=== PATIENT | male | born 2000 | race American Indian/Alaskan Native ===

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

== ENCOUNTER 2022-01-22 18:00 | Emergency (ER) | payer SELFPAY ==
[2022-01-22] MEDS ORDERED: KETOROLAC 60 MG/2 ML INJ IM ONE (20:42)
[2022-01-22] MEDS ORDERED: diazePAM 5 MG TAB PO ONE (20:42)
[2022-01-22] MEDS ORDERED: dexAMETHasone 20 MG/5 ML VIAL IM ONE (20:42)
--- NOTE | 2022-01-22 21:32 | Emergency Department Report ---
ED Back Pain/Injury HPI - General Chief Complaint: Back Pain/Injury Stated Complaint: BACK PAIN Source: patient Limitations: No Limitations - History of Present Illness Initial Comments: Patient is a 21-year-old -Citizen Of [place] male with no past medical history who presents to the ED with complaint of acute onset persistent low back pain after heavy lifting at work for the last 3 days. Patient states that the pain is especially constant with and worsening with any movement. Patient also complains of persistently itchy dry scaly rashes on the posterior neck for the last 6 months and that he has applied topical medications with no relief. Patient denies dizziness, syncope, fall, traumatic injury, dysuria, fever, chills, urinary frequency and urgency, hematuria, chest pain or shortness of breath, abdominal pain, nausea and vomiting, numbness and tingling or weakness of lower extremities bilaterally, change in vision, urinary or bowel incontinence and saddle paresthesia. MD Complaint: back pain (lower), back injury (heavy lifting at work), other (dry scaly itchy rashes on neck) -: Gradual, days(s) (3) Similar Symptoms Previously: No Place: work Radiation: none Severity: severe Severity scale (0 -10): 8 Quality: sharp, aching Consistency: constant Improves With: none Worsens With: movement, walking Context: while lifting, turning/twisting Associated Symptoms: denies other symptoms. denies: confusion, weakness, numbness, difficulty walking, cough, difficulty urinating, incontinence, fever/chills, constipation, headaches, abdominal pain, loss of appetite, nausea/vomiting, rash, seizure, shortness of breath, syncope, other - Related Data Previous Rx's Medication Instructions Recorded Last Taken Type Famotidine [Pepcid] 20 mg PO BID PRN #20 tablet 06/15/16 Unknown Rx Loratadine (Nf) [Claritin] 10 mg PO DAILY #10 tablet 06/15/16 Unknown Rx hydrOXYzine HCL [Hydroxyzine HCl] 25 mg PO BID PRN #20 tablet 06/15/16 Unknown Rx Ibuprofen [Motrin] 800 mg PO Q8HR PRN #30 tablet 01/22/22 Unknown Rx Terbinafine (Nf) [LamiSIL] 250 mg PO QDAY #21 tablet 01/22/22 Unknown Rx methOCARBAMOL [Robaxin TAB] 750 mg PO Q8H PRN #24 tab 01/22/22 Unknown Rx traMADoL [Ultram] 50 mg PO Q6HR PRN #12 tablet 01/22/22 Unknown Rx Allergies Allergy/AdvReac Type Severity Reaction Status Date / Time No Known Allergies Allergy Unverified 06/15/16 09:12 ED Review of Systems ROS: Stated complaint: BACK PAIN Other details as noted in HPI Constitutional: denies: chills, fever Eyes: denies: eye pain, eye discharge, vision change ENT: denies: ear pain, throat pain Respiratory: denies: cough, shortness of breath, wheezing Cardiovascular: denies: chest pain, palpitations Endocrine: no symptoms reported Gastrointestinal: denies: abdominal pain, nausea, vomiting, diarrhea Genitourinary: denies: urgency, dysuria, frequency, hematuria, testicular pain Musculoskeletal: back pain (Low back pain). denies: joint swelling, arthralgia Skin: rash (Dry scaly itchy rashes on the posterior neck), pruritus. denies: lesions, change in color, change in hair/nails Neurological: denies: headache, weakness, paresthesias Psychiatric: denies: anxiety, depression Hematological/Lymphatic: denies: easy bleeding, easy bruising ED Past Medical Hx - Past Medical History Previous Medical History?: No - Surgical History Past Surgical History?: No - Social History Smoking Status: Current Every Day Smoker Substance Use Type: None - Medications Home Medications: Home Medications Medication Instructions Recorded Confirmed Last Taken Type Famotidine [Pepcid] 20 mg PO BID PRN #20 tablet 06/15/16 Unknown Rx Loratadine (Nf) [Claritin] 10 mg PO DAILY #10 tablet 06/15/16 Unknown Rx hydrOXYzine HCL [Hydroxyzine HCl] 25 mg PO BID PRN #20 tablet 06/15/16 Unknown Rx Ibuprofen [Motrin] 800 mg PO Q8HR PRN #30 tablet 01/22/22 Unknown Rx Terbinafine (Nf) [LamiSIL] 250 mg PO QDAY #21 tablet 01/22/22 Unknown Rx methOCARBAMOL [Robaxin TAB] 750 mg PO Q8H PRN #24 tab 01/22/22 Unknown Rx traMADoL [Ultram] 50 mg PO Q6HR PRN #12 tablet 01/22/22 Unknown Rx ED Physical Exam - General Limitations: No Limitations General appearance: alert, in no apparent distress - Head Head exam: Present: atraumatic, normocephalic, normal inspection - Eye Eye exam: Present: normal appearance, PERRL, EOMI Pupils: Present: normal accommodation - ENT ENT exam: Present: normal exam, normal orophraynx, mucous membranes moist, TM's normal bilaterally, normal external ear exam - Neck Neck exam: Present: normal inspection, full ROM, other (Diffuse dry scaly rashes posterior neck). Absent: tenderness - Respiratory Respiratory exam: Present: normal lung sounds bilaterally. Absent: respiratory distress, wheezes, rales, stridor, chest wall tenderness, accessory muscle use, decreased breath sounds, prolonged expiratory - Cardiovascular Cardiovascular Exam: Present: regular rate, normal rhythm, normal heart sounds. Absent: systolic murmur, diastolic murmur, rubs, gallop - GI/Abdominal GI/Abdominal exam: Present: soft, normal bowel sounds. Absent: tenderness, guarding, rebound, hyperactive bowel sounds, hypoactive bowel sounds, organomegaly - Extremities Exam Extremities exam: Present: normal inspection, full ROM, normal capillary refill. Absent: tenderness, pedal edema, joint swelling - Back Exam Back exam: Present: normal inspection, full ROM, tenderness (Palpable lumbosacral paraspinal musculoskeletal tenderness), muscle spasm, paraspinal tenderness. Absent: CVA tenderness (R), CVA tenderness (L), vertebral tenderness, rash noted - Neurological Exam Neurological exam: Present: alert, oriented X3, CN II-XII intact, normal gait, reflexes normal - Psychiatric Psychiatric exam: Present: normal affect, normal mood - Skin Skin exam: Present: warm, dry, intact, normal color, rash (Diffuse dry scaly rashes on posterior neck) ED Course Vital Signs 01/22/22 18:22 Temperature 98.6 F Pulse Rate 75 Respiratory 18 Rate Blood Pressure 122/63 [Left] O2 Sat by Pulse 98 Oximetry ED Medical Decision Making - Medical Decision Making This is a 21-year-old -Citizen Of [place] male with no past medical history who presents to the ED with complaint of acute onset persistent low back pain after heavy lifting at work for the last 3 days. Patient states that the pain is especially constant with and worsening with any movement. Patient also complains of persistently itchy dry scaly rashes on the posterior neck for the last 6 months and that he has applied topical medications with no relief. In the ED, patient is alert and oriented x3 and is not in any distress. Patient was treated for pain in the ED. Patient was discharged home on medications and advised to follow-up with his primary care physician in 7 to 10 days for reevaluation or return to the ED immediately if symptoms get worse. - Differential Diagnosis Muscle spasm; muscle strain; back injury; tinea corporis Critical care attestation.: If time is entered above; I have spent that time in minutes in the direct care of this critically ill patient, excluding procedure time. ED Disposition Clinical Impression: Spasm of muscle of lower back, Strain of muscle, fascia and tendon of lower back, initial encounter, Tinea corporis Disposition: HOME / SELF CARE / HOMELESS Is pt being admited?: No Does the pt Need Aspirin: No Condition: Stable Instructions: Muscle Cramps and Spasms, [id number], Muscle Strain, [id number], Lumbosacral Strain, Body Ringworm Additional Instructions: Your injuries are likely musculoskeletal following heavy lifting. Therefore take medication with Food, drink plenty of fluids and follow-up with your primary care physician in 7 to 10 days for reevaluation. Return to the ED immediately if symptoms get worse. Prescriptions: Terbinafine (Nf) [LamiSIL] 250 mg PO QDAY #21 tablet Ibuprofen [Motrin] 800 mg PO Q8HR PRN #30 tablet PRN Reason: Pain , Severe (7-10) methOCARBAMOL [Robaxin TAB] 750 mg PO Q8H PRN #24 tab PRN Reason: muscle spasm traMADoL [Ultram] 50 mg PO Q6HR PRN #12 tablet PRN Reason: Pain Referrals: [facility] [Provider Group] - 7-10 days Forms: Work/School Release Form(ED) Time of Disposition: 21:33 Print Language: [id number]
[2022-01-22 23:03] VITALS: BP 126/66
== END 2022-01-22 23:04 | disposition home or self-care (01) ==
LOC: ED 18:00
DX: S39.012A Strain of muscle, fascia and tendon of lower back, initial encounter (principal); M62.830 Muscle spasm of back; B35.4 Tinea corporis; X50.0XXA Overexertion from strenuous movement or load, initial encounter; X50.9XXA Other and unspecified overexertion or strenuous movements or postures, initial encounter; Y93.89 Activity, other specified; Y92.89 Other specified places as the place of occurrence of the external cause; Y99.8 Other external cause status
CPT/HCPCS: 96372; 99282; J1100; J1885